=== PATIENT | female | born 1960 | race American Indian/Alaskan Native ===

== ENCOUNTER 2017-05-06 07:07 | Day surgery (SDC) | payer MEDICARE ==
[2017-05-06] MEDS ORDERED: WATER FOR IRRIG STERILE ONE (07:11)
[2017-05-06] MEDS ORDERED: WATER FOR IRRIG STERILE IR ONE (07:11)
[2017-05-06] MEDS ORDERED: NACL 0.9% 1000 ML 1,000 ML IV SCH (08:00)
--- NOTE | 2017-05-06 08:09 | Anesthesia Day of Surgery ---
Anesthesia Day of Surgery - Day of Surgery Patient Examined: Yes Patient H&P Reviewed: Yes Patient is NPO: Yes
--- NOTE | 2017-05-06 08:11 | Anesthesia Consultation ---
Anesthesia Consult and Med Hx Date of service: 05/06/17 - Airway Anesthetic Teeth Evaluation: Good ROM Head & Neck: Adequate Mental/Hyoid Distance: Adequate Mallampati Class: Class II Intubation Access Assessment: Probably Good - Pulmonary Exam CTA: Yes - Cardiac Exam Cardiac Exam: RRR - Pre-Operative Health Status ASA Pre-Surgery Classification: ASA3 Proposed Anesthetic Plan: MAC - Pulmonary Hx Smoking: Yes (quit 10yrs ago) Hx Asthma: No Hx Pneumonia: No - Cardiovascular System Hx Hypertension: Yes Hx Heart Attack/AMI: No - Central Nervous System Hx Seizures: No CVA: No - Gastrointestinal Hx Gastroesophageal Reflux Disease: Yes (med prn) - Endocrine Hx Renal Disease: Yes Hx End Stage Renal Disease: Yes (on dialysis 3x a week, last dialyzed yesterday) Hx Liver Disease: No Hx Non-Insulin Dependent Diabetes: No - Other Systems Hx Cancer: No - Additional Comments Anesthesia Medical History Comments: NAC
[2017-05-06] MEDS ORDERED: DIPRIVAN 10 MG/ML IV ONE ×2 (08:19)
--- NOTE | 2017-05-06 08:47 | Post Operative Note ---
Pre-op diagnosis: screening colonoscopy Post-op diagnosis: other (fair prep, few scattered tics, internal hemorrhoids) Findings: Colonoscopy: fair prep to cecum, internal hemorrhoids, mild diverticulosis Procedure: Colonoscopy Anesthesia: MAC Surgeon: ED LIZAMA Estimated blood loss: none Pathology: none Condition: stable Disposition: same day
--- NOTE | 2017-05-06 08:52 | Operative Report ---
Operative Report Operative Report: COLONOSCOPY PROCEDURE NOTE DATE OF PROCEDURE: 05/06/2017 : 1960 PRE-OP DIAGNOSIS: Screening colonoscopy POST-OP DIAGNOSIS: internal hemorrhoids, diverticulosis, fair prep ANESTHESIA: MAC ESTIMATED BLOOD LOSS: None COMPLICATIONS: No immediate complications PROCEDURE: After consent was obtained, the patient was placed in the left lateral decubitus position. The fujinon colonoscope was inserted into the rectum under direct vision, and advanced to the cecum without difficulty. The patient tolerated the procedure well. The views of the mucosa were fair. The quality of prep was fair. The patient's vital signs were monitored continuously throughout the procedure. FINDINGS: Few scattered diverticula throughout the colon. Internal hemorrhoids (moderate-sized) seen on retroflexion view. Otherwise, no significant findings. IMPRESSION: 1. Fair prep 2. Internal hemorrhoids 3. Diverticulosis RECOMMENDATIONS: -high fiber diet daily -repeat colonoscopy for screening purposes in 5 years due to fair prep -follow-up in GI clinic as previously scheduled
[2017-05-06 09:16] VITALS: BP 163/72
--- NOTE | 2017-05-06 09:59 | Post Anesthesia Evaluation ---
- Post Anesthesia Evaluation Patient Participated: Yes Airway Patent: Yes Stable Respiratory Function: Yes Nausea/Vomiting: No Temp > 96.8F: Yes Pain Manageable: Yes Adequeate Hydration: Yes Anesthesia Complications: No Block Receding Appropriately: Not Applicable Patient on Ventilator: No
== END 2017-05-06 07:08 | disposition home or self-care (01) ==
LOC: GIO 07:07
PROVIDERS: ATTEND Internal Medicine Gastroenterology
DX: Z12.11 Encounter for screening for malignant neoplasm of colon (principal); K64.8 Other hemorrhoids; K57.30 Diverticulosis of large intestine without perforation or abscess without bleeding; K21.9 Gastro-esophageal reflux disease without esophagitis; I12.0 Hypertensive chronic kidney disease with stage 5 chronic kidney disease or end stage renal disease; N18.6 End stage renal disease; F41.9 Anxiety disorder, unspecified; F32.9 Major depressive disorder, single episode, unspecified; Z99.2 Dependence on renal dialysis; Z87.891 Personal history of nicotine dependence; Z79.899 Other long term (current) drug therapy; Z72.89 Other problems related to lifestyle
CPT/HCPCS: G0121; J2704; J7030

== ENCOUNTER 2017-12-21 19:40 | Emergency (ER) | payer MEDICARE ==
[2017-12-21 19:59] VITALS: BP 142/88
== END 2017-12-22 06:50 | disposition left against medical advice (07) ==
LOC: ED 19:40
DX: Z48.01 Encounter for change or removal of surgical wound dressing (principal); Z53.21 Procedure and treatment not carried out due to patient leaving prior to being seen by health care provider

== ENCOUNTER 2017-12-28 08:22 | Outpatient (CLI) | payer MEDICARE ==
--- NOTE | 2017-12-28 11:50 | Ultrasound Report ---
Thyroid ultrasound: Nodules. The right thyroid lobe measures 2.3 x 2.4 x 4.8 cm. In the superior lobe is an aggregate of nodules with at least one of them measuring 7 mm in size with slight hyperechogenicity. In the mid lobe there is a partially cystic 14 mm circumscribed nodule which may contain a few small calcifications. The inferior lobe is occupied by a mildly heterogeneous solid circumscribed nodule measuring 2.2 cm. No calcifications. It is highly vascularized. The left lobe measures 1.8 x 2.0 x 6.1 cm. In the superior and mid gland there are 3 discrete nodules which are heterogeneous, circumscribed, without calcification. The largest of these measures 14 mm. In the inferior lobe there is a heterogeneous slightly hypoechoic nodule measuring 19 mm in size with peripheral vascularity. The isthmus has a thickness of 8.7 mm and is slightly inhomogeneous. Review of the thoracic CTA demonstrates a markedly heterogeneous and mildly enlarged thyroid gland in 2015. The inferior nodule on the left was obvious at that time. Impression: Bilateral nodules. The dominant singular inferior lobe nodules on each side are both indeterminate. Recommendation: Consider ultrasound-guided biopsies of both dominant nodules.
== END 2017-12-28 08:23 | disposition home or self-care (01) ==
LOC: US 08:22
DX: E04.2 Nontoxic multinodular goiter (principal); Z94.0 Kidney transplant status
CPT/HCPCS: 76536

== ENCOUNTER 2018-01-07 08:07 | Emergency (ER) | payer MEDICARE ==
[2018-01-07 08:33] LABS: Basophils % (Auto) 0.5 % (0.0-1.8); Eosinophils % (Auto) 0.2 % (0.0-4.3); Hematocrit 31.4 % (30.3-42.9); Hemoglobin 10.1 gm/dl (10.1-14.3); Lymphocytes # (Auto) 0.6 K/mm3 (1.2-5.4); Lymphocytes % (Auto) 7.7 % (13.4-35.0); Mean Corpuscular HGB Conc 32 % (30-34); Mean Corpuscular Hemoglobin 27 pg (28-32); Mean Corpuscular Volume 85 fl (79-97); Monocytes # (Auto) 0.4 K/mm3 (0.0-0.8); Platelet Count 262 K/mm3 (140-440); Red Blood Count 3.68 M/mm3 (3.65-5.03)
[2018-01-07 08:53] LABS: Alanine Aminotransferase 19 units/L (7-56); Albumin 4.1 g/dL (3.9-5); BUN/Creatinine Ratio 18; Blood Urea Nitrogen 16 mg/dL (7-17); Calcium 9.7 mg/dL (8.4-10.2); Hemolysis Index 7
--- NOTE | 2018-01-07 12:28 | Emergency Department Report ---
ED Abdominal Pain HPI - General Chief Complaint: Abdominal Pain Stated Complaint: ABD&GROIN PAIN Time Seen by Provider: 01/07/18 12:10 Source: patient Mode of arrival: Ambulatory Limitations: No Limitations - History of Present Illness Initial Comments: Is a 57-year-old female that presents to emergency room with complaints of abdominal pain 1 day. Patient states the pain is worsening. Patient states that she had a kidney transplant 1 month ago and she called her data security coordinator and was instructed to come to the ER. Patient denies chest pain shortness of breath. Patient denies fever and chills. Patient states that the abdominal pain is bilateral lower abd pain. Patient currently has a wound VAC on her transplanted site. Patient states that her kidney function is good since transplant. Patient states is making good urine with her new kidney. Patient states that the pain feels like a cramping sensation in her lower abdomen. MD Complaint: abdominal pain -: Sudden, days(s) (2 days) Location: LUQ, RUQ, suprapubic Radiation: RUQ Migration to: no migration Severity: severe Severity scale (0 -10): 7 Quality: cramping, stabbing Consistency: constant Improves With: rest Worsens With: movement Context: recent surgery/procedure (kidney transplant 1 month ago at [facility]) Associated Symptoms: denies: nausea, vomiting, diarrhea, fever, chills, constipation, dysuria, hematemesis, hematochezia, melena, hematuria, anorexia, syncope - Related Data Home Medications Medication Instructions Recorded Confirmed Last Taken Biotin [Jefry Biotin] 10,000 mcg PO DAILY 05/25/15 05/25/15 05/05/17 Cinacalcet HCl [Sensipar] 60 mg PO QHS 05/25/15 05/25/15 05/05/17 Mecobalamin [B-12] 1,000 mcg SL DAILY 05/25/15 05/25/15 05/05/17 Minoxidil [Loniten] 2.5 mg PO BID 05/25/15 05/25/15 05/05/17 Sevelamer Carbonate [Renvela] 800 mg PO TIDWM 05/25/15 05/25/15 05/05/17 Vit B Comp No.3/Folic/C/Biotin 1 each PO DAILY 05/25/15 05/25/15 05/05/17 [Nephro-Chika Rx Tablet] amLODIPine [Norvasc] 10 mg PO DAILY 05/25/15 05/25/15 05/05/17 hydrALAZINE [Apresoline TAB] 50 mg PO Q6H 05/25/15 05/25/15 05/05/17 Previous Rx's Medication Instructions Recorded Last Taken Type Acetaminophen [Acetaminophen TAB] 650 mg PO Q6H PRN #20 tablet 05/26/15 Unknown Rx Allergies Allergy/AdvReac Type Severity Reaction Status Date / Time No Known Allergies Allergy Verified 05/05/17 10:12 ED Review of Systems ROS: Stated complaint: ABD&GROIN PAIN Other details as noted in HPI Constitutional: denies: chills, fever Eyes: denies: eye pain, eye discharge, vision change ENT: denies: ear pain, throat pain Respiratory: denies: cough, shortness of breath, wheezing Cardiovascular: denies: chest pain, palpitations Endocrine: no symptoms reported Gastrointestinal: abdominal pain. denies: nausea, diarrhea Genitourinary: frequency. denies: dysuria, discharge Musculoskeletal: denies: back pain, joint swelling, arthralgia Skin: denies: rash, lesions Neurological: denies: headache, weakness, paresthesias Psychiatric: denies: anxiety, depression Hematological/Lymphatic: denies: easy bleeding, easy bruising ED Past Medical Hx - Past Medical History Previous Medical History?: Yes Hx Hypertension: Yes Hx Heart Attack/AMI: No Hx Congestive Heart Failure: No Hx Diabetes: No Hx GERD: Yes Hx Liver Disease: No Hx Renal Disease: Yes Hx Seizures: No Hx Asthma: No Additional medical history: AV fistula RUE 03/21/15 - Surgical History Past Surgical History?: Yes Additional Surgical History: AV fistula RUE///kidney transplant 11/22/2017, -mesh hernia repair,wound vac - Family History Family history: hypertension - Social History Smoking Status: Former Smoker Substance Use Type: None - Medications Home Medications: Home Medications Medication Instructions Recorded Confirmed Last Taken Type Biotin [Jefry Biotin] 10,000 mcg PO DAILY 05/25/15 05/25/15 05/05/17 History Cinacalcet HCl [Sensipar] 60 mg PO QHS 05/25/15 05/25/15 05/05/17 History Mecobalamin [B-12] 1,000 mcg SL DAILY 05/25/15 05/25/15 05/05/17 History Minoxidil [Loniten] 2.5 mg PO BID 05/25/15 05/25/15 05/05/17 History Sevelamer Carbonate [Renvela] 800 mg PO TIDWM 05/25/15 05/25/15 05/05/17 History Vit B Comp No.3/Folic/C/Biotin 1 each PO DAILY 05/25/15 05/25/15 05/05/17 History [Nephro-Chika Rx Tablet] amLODIPine [Norvasc] 10 mg PO DAILY 05/25/15 05/25/15 05/05/17 History hydrALAZINE [Apresoline TAB] 50 mg PO Q6H 05/25/15 05/25/15 05/05/17 History Acetaminophen [Acetaminophen TAB] 650 mg PO Q6H PRN #20 tablet 05/26/15 Unknown Rx ED Physical Exam - General Limitations: No Limitations General appearance: alert, in no apparent distress - Head Head exam: Present: atraumatic, normocephalic - Eye Eye exam: Present: normal appearance - ENT ENT exam: Present: mucous membranes moist - Neck Neck exam: Present: normal inspection - Respiratory Respiratory exam: Present: normal lung sounds bilaterally. Absent: respiratory distress - Cardiovascular Cardiovascular Exam: Present: regular rate, normal rhythm. Absent: systolic murmur, diastolic murmur, rubs, gallop - GI/Abdominal GI/Abdominal exam: Present: soft, tenderness (bilateral lower extremity and tenderness around transplant site), normal bowel sounds - Extremities Exam Extremities exam: Present: normal inspection - Back Exam Back exam: Present: normal inspection - Neurological Exam Neurological exam: Present: alert, oriented X3 - Psychiatric Psychiatric exam: Present: normal affect, normal mood - Skin Skin exam: Present: warm, dry, intact, normal color. Absent: rash ED Course Vital Signs 01/07/18 01/07/18 01/07/18 08:13 12:19 19:05 Temperature 99 F Pulse Rate 89 Respiratory 16 18 Rate Blood Pressure 141/89 O2 Sat by Pulse 100 99 100 Oximetry 01/07/18 01/07/18 19:15 19:30 Temperature Pulse Rate Respiratory Rate Blood Pressure 136/71 130/71 O2 Sat by Pulse 99 100 Oximetry - Reevaluation(s) Reevaluation #1: Primary transplant doctor called approximately 1 hour ago and still has not returned call. [facility] transfer nurse recontacted in order to try to get a hold of the transplant extractor plant operator 01/07/18 16:33 Reevaluation #2: Just case with [facility] transplant doctor however patient unable to go to [facility] due to being on diversion. 01/07/18 17:37 Reevaluation #3: [facility] Dr. Clarke Savage accepted patient to be transferred down to [place] for GERD ER transfer for further evaluation and treatment and care of the transplanted kidney 01/07/18 17:59 ED Medical Decision Making - Lab Data Result diagrams: 01/07/18 08:25 01/07/18 08:21 Critical care attestation.: If time is entered above; I have spent that time in minutes in the direct care of this critically ill patient, excluding procedure time. ED Disposition Clinical Impression: Abdominal pain, Hydronephrosis, Pyelonephritis, UTI (urinary tract infection), Kidney transplant recipient Disposition: [id number] ANOTHER TYPE HLTHCARE Is pt being admited?: No Does the pt Need Aspirin: No Condition: Serious Instructions: Abdominal Pain (ED) Time of Disposition: 18:02
[2018-01-07 13:01] LABS: Bacteria,Urine 1+ /HPF (Negative); Bilirubin,Urine NEG (Negative); Blood,Urine SM (Negative); Color,Urine Yellow (Yellow); Mucus,Urine FEW /HPF; Urobilinogen,Urine < 2.0 mg/dL (<2.0)
--- NOTE | 2018-01-07 13:51 | Cat Scan Report ---
CT ABDOMEN AND PELVIS WITHOUT CONTRAST INDICATION: Pain. COMPARISON: None similar. FINDINGS: Noncontrast abdomen and pelvis CT performed. LUNG BASES: Slight increased AP chest diameter/COPD. Top normal heart size. Anemia not excluded. No effusions. Nonspecific distal esophageal wall prominence/thickening, not excluded for gastroesophageal reflux and/or hiatal hernia, amongst others. ABDOMEN: Please note that sensitivity to detect small visceral lesions is limited due to the absence of intravenous or oral contrast. An indeterminate 4 mm peripheral hepatic hypodensity, axial image 19, series 2. Liver appears slightly hyperdense. Markedly atrophic bilateral kidneys with few cortical hypodensities/cysts measuring up to 1 cm on the right as also few small right renal calcifications inferiorly. Otherwise grossly unremarkable unenhanced liver, spleen, gallbladder, pancreas, adrenals, IVC and nonaneurysmal abdominal aorta with few atherosclerotic calcifications. No ascites or size significant adenopathy. Nonopacified GI tract evaluation limited, though grossly nonobstructive. Mild to moderate stool throughout colon/possible constipation. Small fat containing umbilical hernia with a transverse neck of 1.1 cm. A right lower quadrant renal transplant noted with slight intrarenal collecting system fullness as on axial image 53, series 2 as also mild fluid stranding/density noted parapelvic and extending inferiorly as on axial images 54-70, measuring 4.2 x 3.1 cm inferior to the transplanted kidney and measuring 12 HU as on axial image 65, series 2 and also extending anteriorly in the lower right hemipelvis as on axial image 71, amongst others. Similar density also questioned laterally along the right lower quadrant wall muscles as on axial images 54-60, at places inseparable from the transplanted renal cortex. Overlying abdominal wall postsurgical changes also noted. PELVIS: Rectosigmoid stool. Grossly unremarkable non-opacified urinary bladder and the uterus. Approximately 2.6 x 1.5 cm right adnexal/ovarian hypodense simple cystic attenuation, axial image 62, series 2. Few small pelvic phleboliths. No definite size significant adenopathy. Mild degenerative spurring at few spinal levels. CONCLUSION: 1. Slight fullness/hydronephrosis of right lower quadrant transplant suspected. Mild fluid density/stranding also noted medially about its pelvis as also extending infrarenal and some possibly laterally, as detailed above, though nonspecific and of uncertain etiology based on this unenhanced exam alone. Please also correlate clinically and with prior relevant imaging, if available. 2. Various other incidental findings as at the lung bases, markedly atrophic [place] kidneys and possible constipation, amongst others, as detailed above. Thank you for the opportunity to participate in this patient's care.
[2018-01-07] MEDS ORDERED: ROCEPHIN/NS 1 GM/50 ML 1 GM/50 ML BAG IV ONE (17:54)
[2018-01-07] MEDS ORDERED: cefTRIAXone 1 GM in NACL 0.9% 20 ML IV ONE (18:30)
[2018-01-07 20:51] VITALS: BP 125/71
== END 2018-01-07 20:30 | disposition other institution (70) ==
LOC: ED 08:07
DX: N12 Tubulo-interstitial nephritis, not specified as acute or chronic (principal); N13.30 Unspecified hydronephrosis; N39.0 Urinary tract infection, site not specified; R10.12 Left upper quadrant pain; I10 Essential (primary) hypertension; K21.9 Gastro-esophageal reflux disease without esophagitis; Z87.891 Personal history of nicotine dependence; Z94.0 Kidney transplant status
CPT/HCPCS: 36415; 74176; 80053; 81001; 85025; 87040; 87086; 96365; 99285; J0696